=== PATIENT | female | born 1980 | race Caucasian/White ===

== ENCOUNTER → 2021-05-28 | Outpatient (CLI) | payer OTHER ==
[~2021-05-28] MED LIST: ATIVAN 1MG T1 MG/TAB PO; EFFEXOR XR150 MG PO; PERCOCET 325 MG1 TA2 PO; PHENERGAN 25 TA25 MG PO; TOPAMAX 100MG100 M1 PO; TOPAMAX15 MG PO; ZYRTEC 10MG10 MG PO
== END ==
LOC: MC.RAD 14:06
DX: Z12.31 Encounter for screening mammogram for malignant neoplasm of breast (principal); N63.11 Unspecified lump in the right breast, upper outer quadrant

== ENCOUNTER → 2021-06-04 | Outpatient (CLI) | payer OTHER | LOC: MC.RAD 11:00 | DX: N64.9 Disorder of breast, unspecified (principal) ==

== ENCOUNTER → 2021-12-17 | Outpatient (CLI) | payer OTHER | LOC: MC.RAD 10:00 | DX: N63.10 Unspecified lump in the right breast, unspecified quadrant (principal) ==

== ENCOUNTER → 2022-06-17 | Outpatient (CLI) | payer OTHER | LOC: MC.RAD 14:45 | DX: Z12.31 Encounter for screening mammogram for malignant neoplasm of breast (principal); N64.9 Disorder of breast, unspecified ==

== ENCOUNTER → 2022-06-21 | Outpatient (CLI) | payer OTHER | LOC: MC.RAD 07:30 | DX: N60.02 Solitary cyst of left breast (principal) ==

== ENCOUNTER → 2024-07-06 | Outpatient (CLI) | payer OTHER | LOC: MC.RAD 08:06 | DX: Z12.31 Encounter for screening mammogram for malignant neoplasm of breast (principal) ==